=== PATIENT | male | born 1980 | race Caucasian/White ===

== ENCOUNTER 2016-06-10 12:39 | Emergency (ER) | payer SELFPAY ==
[2016-06-10] MEDS ORDERED: Ketorolac Tromethamine 60 MG/2 ML VIAL ONE (13:03)
--- NOTE | 2016-06-10 13:53 | ERRECORD ---
[facility] EMERGENCY RECORD HPI NAUSEA/VOMITING/DIARRHEA (13:19 BLEW) CHIEF COMPLAINT: Patient presents for evaluation of nausea, Patient presents for evaluation of diarrhea, Patient presents for evaluation of Headache. HISTORIAN: History provided by patient, Patient was fine last night but woke this morning with frontal HORVATH, nausea and diarrhea. No fever. (+) body aches and fatigue. No hemoptysis or hematochezia. No head trauma. No neurologic complaints. LOCATION MALE: Symptoms are generalized. QUALITY: Pain is dull in nature. SEVERITY: Maximum severity of symptoms moderate, Currently symptoms are moderate. TIME COURSE: Gradual onset of symptoms, are constant. ASSOCIATED WITH MALE: No associated bright red blood per rectum, Associated with chills, No associated constipation, Associated with diarrhea, No associated genital discharge, No associated groin pain, No associated hematemesis, No associated hematuria, No associated loss of appetite, No associated melena, Associated with nausea, No associated trauma, No associated inability to tolerate oral intake, No associated urinary tract infection signs or symptoms, No associated vomiting. EXACERBATED BY: Patient's condition exacerbated by walking, Patient's condition exacerbated by exertion. RELIEVED BY: Patient's condition relieved by nothing, Patient's condition relieved by nothing because patient has not tried anything for relief. ROS (13:21 BLEW) CONSTITUTIONAL: Negative constitutional review of systems, Historian denies chills, denies fever. EYES: Negative eye review of systems. ENT: Negative ears, nose, throat review of systems. CARDIOVASCULAR: Negative cardiovascular review of systems, Historian denies chest pain, denies palpitations. RESPIRATORY: Negative respiratory review of systems, Historian denies cough, denies shortness of breath. GI: Negative gastrointestinal review of systems, Historian denies abdominal pain, denies constipation, denies diarrhea. MUSCULOSKELETAL: Negative musculoskeletal review of systems. SKIN: Negative skin review of systems. NEUROLOGIC: Negative neurologic review of systems. ENDOCRINE: Negative endocrine review of systems. HEMO/LYMPHATIC: Normal hematologic/lymphatic system review. PSYCHIATRIC: Negative psychiatric review of systems. NOTES: All other ROS is negative except as listed in HPI. PAST MEDICAL HISTORY MEDICAL HISTORY: Flu vaccine not up to date, Tetanus immunization up to date, Past medical history includes &a-1R&a+25V*p+0X*c3465C*c202B*c15G*c2P*p-0X&a-25V&a+1R Name: Ken Mcdonald : 1980 M35 MedRec: [id number] AcctNum: [id number] Prepared: [place] Jun 10, 2016 16:15 by Interface Page 1 of 4 pMD [facility] EMERGENCY RECORD musculoskeletal disorder, chronic back pain. (12:49 BDON) MALE SURGICAL HISTORY: Surgical history of orthopedic surgery, R thumb. (12:49 BDON) PSYCHIATRIC HISTORY: No previous psychiatric history. (12:49 BDON) SOCIAL HISTORY: Patient denies alcohol use, Patient is a former drug user, abused marijuana, Drug history notes: 2 times a day, Patient currently uses tobacco, chews tobacco, daily, Patient has smoked for 25 years,. (12:49 BDON) NOTES: I have reviewed and agree with the PMH/PSxH/FamHx/SocHx obtained by the nurse. (13:21 BLEW) KNOWN ALLERGIES Bactrim DS: - diarrhea No Known Drug Allergies (Unconfirmed) CURRENT MEDICATIONS (12:50 BDON) Robaxin: TABLET : Strength - 750 mg : ORAL Patient Dose: 2 times a day. VITAL SIGNS (12:44 BDON) VITAL SIGNS: BP: 147/94, Pulse: 75, Resp: 18, Temp: 96.8 (Oral), Pain: 6, O2 sat: 99, Time: 06/10/2016 12:44. PHYSICAL EXAM (13:21 BLEW) CONSTITUTIONAL: Vital signs reviewed, Patient appears non toxic, Patient alert and oriented to person, place and time, Pt is in no apparent distress. HEAD: Head exam included findings of head atraumatic, normocephalic. EYES: Eye exam included findings of eyelids normal to inspection, Pupils equally round and reactive to light, Extraocular muscles intact. ENT: ENT exam normal, Nose exam normal, no nasal deformity, no bleeding from nares, Pharynx exam normal, Mouth exam normal, mucous membranes moist. NECK: Neck exam included findings of normal range of motion, Trachea midline. RESPIRATORY CHEST: Respiratory and chest exam normal, Breath sounds clear, No wheezing, No rales, Chest exam included findings of chest movement symmetrical, Chest expansion equal. CARDIOVASCULAR: Cardiovascular assessment normal, Cardiovascular exam included findings of heart rate regular rate and rhythm, Heart sounds normal. ABDOMEN MALE: Abdominal exam included findings of abdomen nontender, Bowel sounds normal, no mass, no pulsatile masses, no peritoneal signs, no rigidity, no guarding, no rebound. BACK: Back exam included findings of normal inspection, range of motion normal, no costovertebral angle tenderness. &a-1R&a+25V*p+0X*t3729Y*c202B*c15G*c2P*p-0X&a-25V&a+1R Name: Ken Mcdonald : 1980 M35 MedRec: [id number] AcctNum: [id number] Prepared: [facility] Jun 10, 2016 16:15 by Interface Page 2 of 4 pMD [facility] EMERGENCY RECORD UPPER EXTREMITY: Upper extremity exam included findings of inspection normal, Range of motion normal. LOWER EXTREMITY: Lower extremity exam included findings of inspection normal, Range of motion normal. NEURO: Neuro exam findings include patient oriented to person, place and time, Speech normal, no focal motor deficits, no focal sensory deficits. SKIN: Skin exam included findings of skin warm, dry, and normal in color. LYMPHATIC: Lymphatic exam normal. PSYCHIATRIC: Psychiatric exam included findings of patient oriented to person place and time, Normal affect. MEDICATION ADMINISTRATION SUMMARY Drug Name: Toradol intramuscular, Dose Ordered: 60 mg, Route: Intramuscular, Status: Given, Time: 13:08 06/10/2016, Detailed record available in Medication Service section. DOCTOR NOTES (13:21 BLEW) TEXT: Patient has normal NIHSS. HORVATH likely due to some dehydration. Patient refused IV or IV meds. Likely a viral syndrome. PROBLEM LIST No recorded problems DIAGNOSIS (13:09 BLEW) FINAL: PRIMARY: viral syndrome. PRESCRIPTION (13:10 BLEW) Imodium A-D: TABLET : 2 mg : ORAL : Quantity: 2 Unit: mg Route: ORAL Schedule: every 6 hours PRN Dispense: 24 May substitute. Refills: 1 . NOTES: No Refills. Compazine tablet: TABLET : 10 mg : ORAL : Quantity: 1 Unit: tab(s) Route: ORAL Schedule: every 8 hours PRN Dispense: 20 May substitute. Refills: No Refills . NOTES: ^s=No Refills No Refills. Motrin: TABLET : 800 mg : ORAL : Quantity: 1 Unit: tab(s) Route: ORAL Schedule: 3 times a day Dispense: 24 May substitute. Refills: No Refills POTENTIAL CONTRAINDICATED INTERACTION: Toradol intramuscular (ketorolac tromethamine) Override Rationale: Benefits outweigh risks. NOTES: ^s=^s=No Refills No Refills No Refills. &a-1R&a+25V*p+0X*d6512J*c202B*c15G*c2P*p-0X&a-25V&a+1R Name: Ken Mcdonald : 1980 5 MedRec: [id number] AcctNum: [id number] Prepared: [place] Jun 10, 2016 16:15 by Interface Page 3 of 4 pMD [facility] EMERGENCY RECORD DISPOSITION PATIENT: Disposition Type: Discharge, Disposition: *Discharge Home. (13:09 BLEW) Patient left the department. (13:48 BDON) Castillo: BDON=KASSI Richardson, Yadi BLEW=DO Montalvo Brandon &a-1R&a+25V*p+0X*j1901M*c202B*c15G*c2P*p-0X&a-25V&a+1R Name: Ken Mcdonald : 1980 M35 MedRec: [id number] AcctNum: [id number] Prepared: [facility] Jun 10, 2016 16:15 by Interface Page 4 of 4 pMD MTDD
--- NOTE | 2016-06-10 14:02 | PICIS ---
[facility] EMERGENCY RECORD TRIAGE (TueJun 10, 2016 12:47 BDON) TRIAGE NOTES: Generalized bodyaches, nausea, diarrhea, weakness and intermittent sweating. Started 6 hours ago Friends have same. (TueJun 10, 2016 12:47 BDON) PATIENT: NAME: Ken Mcdonald, AGE: 35, GENDER: male, : Sat 1980, TIME OF GREET: TueJun 10, 2016 12:39, PREFERRED LANGUAGE: Bangladeshi, ETHNICITY: Not or , ECODE BILLING MAP: [facility], SSN: [id number], Zip Code: [address], KG WEIGHT: 81.65, PHONE: , , , PERSON ID: [id number], PCP: Aarti Holman, /Yris. (TueJun 10, 2016 12:47 BDON) COMPLAINT: BODYACHES,NAUSEA,HEADACHE. (TueJun 10, 2016 12:47 BDON) ADMISSION: URGENCY: 4 Non Urgent, ADMISSION SOURCE: Home, TRANSPORT: Walk-in, BED: TRIAGE. (TueJun 10, 2016 12:47 BDON) ASSESSMENT: Assessment: Bodyaches, diarrhea, nausea and a headache. Friends have the same. Started this morning, Symptoms began 6 hours ago. (12:49 BDON) TREATMENTS IN PROGRESS: Treatments given Prehospital: none. (12:49 BDON) PROVIDERS: TRIAGE NURSE: Yadi Richardson RN. ([place] Jun 10, 2016 12:47 BDON) VITAL SIGNS: BP 147/94, Pulse 75, Resp 18, Temp 96.8, (Oral), Pain 6, O2 Sat 99, Time 06/10/2016 12:44. (12:44 BDON) PREVIOUS VISIT ALLERGIES: No Known Drug Allergies. (TueJun 10, 2016 12:47 BDON) No Known Drug Allergies. (12:49 BDON) KNOWN ALLERGIES Bactrim DS: - diarrhea No Known Drug Allergies (Unconfirmed) CURRENT MEDICATIONS (12:50 BDON) Robaxin: TABLET : Strength - 750 mg : ORAL Patient Dose: 2 times a day. VITAL SIGNS (12:44 BDON) VITAL SIGNS: BP: 147/94, Pulse: 75, Resp: 18, Temp: 96.8 (Oral), Pain: 6, O2 sat: 99, Time: 06/10/2016 12:44. NURSING ASSESSMENT: ABDOMEN (12:58 BDON) CONSTITUTIONAL: Patient arrives ambulatory, Gait steady, History obtained from patient, Patient appears, uncomfortable, Patient cooperative, Patient alert, Oriented to person, place and time, Skin warm, Skin dry, Skin normal in color. PAIN: aching pain, diffusely. ABDOMEN: Abdomen assessment findings include abdomen symmetrical, Abdomen soft, non-tender, Associated with diarrhea. GENITOURINARY MALE: no associated urinary complaints. &a-1R&a+25V*p+0X*k2254Y*c202B*c15G*c2P*p-0X&a-25V&a+1R Name: Ken Mcdonald : 1980 M35 MedRec: [id number] AcctNum: [id number] Prepared: [facility] Jun 10, 2016 16:21 by Interface Page 1 of 5 pMD [facility] EMERGENCY RECORD SAFETY: Cart/Stretcher in lowest position, Family at bedside, Hospital ID band on, Patient in view of the nursing station. NURSING PLAN OF CARE: Acute Medical Condition:, Patient is able to participate in development and implementation of nursing plan of care for acute medical condition. NURSING PROCEDURE: DISCHARGE NOTE (13:30 BDON) DISCHARGE: Patient discharged to home, ambulating without assistance, Summary of Care printed/ provided, Patient requested and was provided an electronic copy of Discharge Instructions, Transition record given to patient, Discharge instructions given to patient, Simple or moderate discharge teaching performed, Patient treated and evaluated by physician. MEDICATION ADMINISTRATION SUMMARY Drug Name: Toradol intramuscular, Dose Ordered: 60 mg, Route: Intramuscular, Status: Given, Time: 13:08 06/10/2016, Detailed record available in Medication Service section. MEDICATION SERVICE (13:08 BLEW) Toradol intramuscular: Order: Toradol intramuscular (ketorolac tromethamine) - Dose: 60 mg : Intramuscular Schedule: Now Ordered by: Agustin Montalvo DO Entered by: Yadi Richardson RN [facility] Jun 10, 2016 13:03 Documented as given by: Yadi Richardson RN [facility] Jun 10, 2016 13:08 Patient, Medication, Dose, Route and Time verified prior to administration. IM medication, Amount given: 60 mg, Medication administered to right thigh, Correct patient, time, route, dose and medication confirmed prior to administration, Patient advised of actions and side-effects prior to administration, Allergies confirmed and medications reviewed prior to administration. HPI NAUSEA/VOMITING/DIARRHEA (13:19 BLEW) CHIEF COMPLAINT: Patient presents for evaluation of nausea, Patient presents for evaluation of diarrhea, Patient presents for evaluation of Headache. HISTORIAN: History provided by patient, Patient was fine last night but woke this morning with frontal HORVATH, nausea and diarrhea. No fever. (+) body aches and fatigue. No hemoptysis or hematochezia. No head trauma. No neurologic complaints. LOCATION MALE: Symptoms are generalized. QUALITY: Pain is dull in nature. SEVERITY: Maximum severity of symptoms moderate, Currently symptoms are moderate. TIME COURSE: Gradual onset of symptoms, are constant. ASSOCIATED WITH MALE: No associated bright red blood per rectum, Associated with chills, No associated constipation, Associated with &a-1R&a+25V*p+0X*i9098C*c202B*c15G*c2P*p-0X&a-25V&a+1R Name: Ken Mcdonald : 1980 M35 MedRec: [id number] AcctNum: [id number] Prepared: [place] Jun 10, 2016 16:21 by Interface Page 2 of 5 pMD [facility] EMERGENCY RECORD diarrhea, No associated genital discharge, No associated groin pain, No associated hematemesis, No associated hematuria, No associated loss of appetite, No associated melena, Associated with nausea, No associated trauma, No associated inability to tolerate oral intake, No associated urinary tract infection signs or symptoms, No associated vomiting. EXACERBATED BY: Patient's condition exacerbated by walking, Patient's condition exacerbated by exertion. RELIEVED BY: Patient's condition relieved by nothing, Patient's condition relieved by nothing because patient has not tried anything for relief. ROS (13:21 BLEW) CONSTITUTIONAL: Negative constitutional review of systems, Historian denies chills, denies fever. EYES: Negative eye review of systems. ENT: Negative ears, nose, throat review of systems. CARDIOVASCULAR: Negative cardiovascular review of systems, Historian denies chest pain, denies palpitations. RESPIRATORY: Negative respiratory review of systems, Historian denies cough, denies shortness of breath. GI: Negative gastrointestinal review of systems, Historian denies abdominal pain, denies constipation, denies diarrhea. MUSCULOSKELETAL: Negative musculoskeletal review of systems. SKIN: Negative skin review of systems. NEUROLOGIC: Negative neurologic review of systems. ENDOCRINE: Negative endocrine review of systems. HEMO/LYMPHATIC: Normal hematologic/lymphatic system review. PSYCHIATRIC: Negative psychiatric review of systems. NOTES: All other ROS is negative except as listed in HPI. PAST MEDICAL HISTORY MEDICAL HISTORY: Flu vaccine not up to date, Tetanus immunization up to date, Past medical history includes musculoskeletal disorder, chronic back pain. (12:49 BDON) MALE SURGICAL HISTORY: Surgical history of orthopedic surgery, R thumb. (12:49 BDON) PSYCHIATRIC HISTORY: No previous psychiatric history. (12:49 BDON) SOCIAL HISTORY: Patient denies alcohol use, Patient is a former drug user, abused marijuana, Drug history notes: 2 times a day, Patient currently uses tobacco, chews tobacco, daily, Patient has smoked for 25 years,. (12:49 BDON) NOTES: I have reviewed and agree with the PMH/PSxH/FamHx/SocHx obtained by the nurse. (13:21 BLEW) PHYSICAL EXAM (13:21 BLEW) CONSTITUTIONAL: Vital signs reviewed, Patient appears non toxic, Patient alert and oriented to person, place and time, Pt is in &a-1R&a+25V*p+0X*a9251X*c202B*c15G*c2P*p-0X&a-25V&a+1R Name: Ken Mcdonald Ritu : 1980 M35 MedRec: [id number] AcctNum: [id number] Prepared: [facility] Jun 10, 2016 16:21 by Interface Page 3 of 5 pMD [facility] EMERGENCY RECORD no apparent distress. HEAD: Head exam included findings of head atraumatic, normocephalic. EYES: Eye exam included findings of eyelids normal to inspection, Pupils equally round and reactive to light, Extraocular muscles intact. ENT: ENT exam normal, Nose exam normal, no nasal deformity, no bleeding from nares, Pharynx exam normal, Mouth exam normal, mucous membranes moist. NECK: Neck exam included findings of normal range of motion, Trachea midline. RESPIRATORY CHEST: Respiratory and chest exam normal, Breath sounds clear, No wheezing, No rales, Chest exam included findings of chest movement symmetrical, Chest expansion equal. CARDIOVASCULAR: Cardiovascular assessment normal, Cardiovascular exam included findings of heart rate regular rate and rhythm, Heart sounds normal. ABDOMEN MALE: Abdominal exam included findings of abdomen nontender, Bowel sounds normal, no mass, no pulsatile masses, no peritoneal signs, no rigidity, no guarding, no rebound. BACK: Back exam included findings of normal inspection, range of motion normal, no costovertebral angle tenderness. UPPER EXTREMITY: Upper extremity exam included findings of inspection normal, Range of motion normal. LOWER EXTREMITY: Lower extremity exam included findings of inspection normal, Range of motion normal. NEURO: Neuro exam findings include patient oriented to person, place and time, Speech normal, no focal motor deficits, no focal sensory deficits. SKIN: Skin exam included findings of skin warm, dry, and normal in color. LYMPHATIC: Lymphatic exam normal. PSYCHIATRIC: Psychiatric exam included findings of patient oriented to person place and time, Normal affect. EVENTS TRANSFER: Triage to Emergency Triage. (TueJun 10, 2016 12:47 BDON) Emergency Triage to Emergency Room -03. (12:47 BDON) Emergency Emergency Room -03 to Waiting. (13:39 BDON) Removed from Emergency Waiting. (13:48 BDON) DOCTOR NOTES (13:21 BLEW) TEXT: Patient has normal NIHSS. HORVATH likely due to some dehydration. Patient refused IV or IV meds. Likely a viral syndrome. PROBLEM LIST No recorded problems &a-1R&a+25V*p+0X*k7279L*c202B*c15G*c2P*p-0X&a-25V&a+1R Name: Ken Mcdonald Ritu : 1980 M35 MedRec: [id number] AcctNum: [id number] Prepared: [facility] Jun 10, 2016 16:21 by Interface Page 4 of 5 pMD [facility] EMERGENCY RECORD DIAGNOSIS (13:09 BLEW) FINAL: PRIMARY: viral syndrome. DISPOSITION PATIENT: Disposition Type: Discharge, Disposition: *Discharge Home. (13:09 BLEW) Patient left the department. (13:48 BDON) INSTRUCTION (13:11 BLEW) DISCHARGE: VIRAL SYNDROME (ADULT). FOLLOWUP: [facility], [facility], [address] [facility] [place], [facility] [address], , Follow up with Primary Care Physician in 3-4 days. SPECIAL: You should drink plenty of clear fluids over the next few days. If you are nauseated or having diarrhea, you should not eat any solid food (liquids only) until those symptoms resolve. Call your doctor or return with worsening or worrisome symptoms. PRESCRIPTION (13:10 BLEW) Imodium A-D: TABLET : 2 mg : ORAL : Quantity: 2 Unit: mg Route: ORAL Schedule: every 6 hours PRN Dispense: 24 May substitute. Refills: 1 . NOTES: No Refills. Compazine tablet: TABLET : 10 mg : ORAL : Quantity: 1 Unit: tab(s) Route: ORAL Schedule: every 8 hours PRN Dispense: 20 May substitute. Refills: No Refills . NOTES: ^s=No Refills No Refills. Motrin: TABLET : 800 mg : ORAL : Quantity: 1 Unit: tab(s) Route: ORAL Schedule: 3 times a day Dispense: 24 May substitute. Refills: No Refills POTENTIAL CONTRAINDICATED INTERACTION: Toradol intramuscular (ketorolac tromethamine) Override Rationale: Benefits outweigh risks. NOTES: ^s=^s=No Refills No Refills No Refills. IMAGING *DISCHARGE INSTRUCTIONS RECEIPT: Image captured from scanner. (13:47 BDON) *SUPPLY CHARGE SHEET: Image captured from scanner. (13:48 BDON) ADMIN DIGITAL SIGNATURE: KASSI Richardson Bettye. (13:48 BDON) DO Montalvo Brandon. (16:12 BLEW) Castillo: BDON=KASSI Richardson Bettye BLEW=DO Montalvo Brandon &a-1R&a+25V*p+0X*l9458K*c202B*c15G*c2P*p-0X&a-25V&a+1R Name: Ken Mcdonald : 1980 [facility] [place] MedRec: [id number] AcctNum: [id number] Prepared: [place] Jun 10, 2016 16:21 by Interface Page 5 of 5 pMD MTDD
== END 2016-06-10 13:30 | disposition home or self-care (01) ==
LOC: NAV ERS 12:39
DX: B34.9 Viral infection, unspecified (principal)
CPT/HCPCS: 96372; J1885

== ENCOUNTER 2016-09-28 08:46 | Emergency (ER) | payer SELFPAY ==
[2016-09-28] MEDS ORDERED: Lidocaine 1% 20 ML MDV ONE (09:04)
== END 2016-09-28 09:30 | disposition home or self-care (01) ==
LOC: NAV ERS 08:46
DX: L02.421 Furuncle of right axilla (principal); F31.9 Bipolar disorder, unspecified; F41.0 Panic disorder [episodic paroxysmal anxiety]; F17.220 Nicotine dependence, chewing tobacco, uncomplicated; Z79.899 Other long term (current) drug therapy
CPT/HCPCS: 10060; 87070; 87077; 87186; 87205; J2001

== ENCOUNTER 2016-11-04 12:09 | Emergency (ER) | payer SELFPAY ==
[2016-11-04] MEDS ORDERED: Metoclopramide HCl 10 MG/2 ML VIAL ONE (12:54)
[2016-11-04] MEDS ORDERED: diphenhydrAMINE HCl 50 MG/ML 1 ML VIAL ONE (12:54)
== END 2016-11-04 13:57 | disposition home or self-care (01) ==
LOC: NAV ERS 12:09
DX: G43.909 Migraine, unspecified, not intractable, without status migrainosus (principal); F31.9 Bipolar disorder, unspecified; F41.9 Anxiety disorder, unspecified; F17.220 Nicotine dependence, chewing tobacco, uncomplicated; Z79.899 Other long term (current) drug therapy
CPT/HCPCS: 96372; J1200; J2765

== ENCOUNTER 2016-11-24 01:04 | Emergency (ER) | payer SELFPAY ==
[2016-11-24] MEDS ORDERED: Cephalexin 250 MG CAP ONE (01:16)
== END 2016-11-24 01:26 | disposition home or self-care (01) ==
LOC: NAV ERS 01:04
DX: L02.414 Cutaneous abscess of left upper limb (principal); I10 Essential (primary) hypertension; F31.9 Bipolar disorder, unspecified; F41.0 Panic disorder [episodic paroxysmal anxiety]; F17.220 Nicotine dependence, chewing tobacco, uncomplicated; Z79.899 Other long term (current) drug therapy
CPT/HCPCS: 99283

== ENCOUNTER 2016-12-08 14:23 | Outpatient (CLI) | payer OTHER ==
--- NOTE | 2016-12-09 07:37 | RAD ---
RIGHT FINGER TWO VIEWS: History: Injury to the right finger, fourth digit. Pain. FINDINGS/IMPRESSION: There is a questionable fracture involving the base of the dorsal aspect of the distal phalanx. POS: [facility]
== END 2016-12-08 14:24 | disposition home or self-care (01) ==
LOC: NAV RAD 14:23
PROVIDERS: ATTEND Nurse Practitioner Family
DX: S69.91XD Unspecified injury of right wrist, hand and finger(s), subsequent encounter (principal)

== ENCOUNTER 2016-12-21 18:13 | Outpatient (CLI) | payer OTHER ==
--- NOTE | 2016-12-21 20:24 | RAD ---
THREE VIEWS RIGHT HAND 12/21/16 COMPARISON: None. HISTORY: Re-evaluate fracture of the fourth finger. FINDINGS: A fracture deformity was noted involving the dorsal base of the fourth distal phalanx on radiographs of the finger performed 12/08/16. This examination reidentifies that fracture. There has been no evidence for healing. The fracture de monstrates retraction since the prior examination, at least 4 mm. This suggests tension secondary to insertion of the extensor digitorum tendon. No new fracture is identified. IMPRESSION: Obliquely oriented intra-articular fracture again noted involving the dorsal base of the fourth dist al phalanx. There has been interval retraction of the fracture fragment. Nonemergent followup orthop edic consultation advised. POS: TAB[facility]
== END 2016-12-21 18:14 | disposition home or self-care (01) ==
LOC: NAV RAD 18:13
PROVIDERS: ATTEND Nurse Practitioner Family
DX: S69.91XD Unspecified injury of right wrist, hand and finger(s), subsequent encounter (principal)

== ENCOUNTER 2016-12-27 16:37 | Emergency (ER) | payer OTHER ==
[2016-12-27] MEDS ORDERED: Lidocaine 1% 20 ML MDV ONE (17:21)
--- NOTE | 2016-12-27 17:32 | RAD ---
RIGHT HAND THREE VIEWS: History: Laceration of fifth metacarpal. Hit on a broken taillight. Comparison: 12-21-16 FINDINGS: There is no acute fracture or malalignment. No radiopaque foreign object is appreciated. There is mild joint space narrowing of the distal interphalangeal joint, second-fifth digits. Mild d egenerative disease at the thumb carpal metacarpal joint. There is a fracture of the base of the dorsal aspect distal phalanx fourth digit. This was visualize d on the prior examination. IMPRESSION: 1. Similar appearance of the intra-articular fracture distal phalanx base fourth digit. 2. No new fracture or malalignment. POS: [facility]
[2016-12-27] MEDS ORDERED: Bacitracin Zinc 1 Packet ONE (17:35)
== END 2016-12-27 17:46 | disposition home or self-care (01) ==
LOC: NAV ERS 16:37
DX: S62.634A Displaced fracture of distal phalanx of right ring finger, initial encounter for closed fracture (principal); S61.411A Laceration without foreign body of right hand, initial encounter; F41.0 Panic disorder [episodic paroxysmal anxiety]; F31.9 Bipolar disorder, unspecified; F17.220 Nicotine dependence, chewing tobacco, uncomplicated; W22.8XXA Striking against or struck by other objects, initial encounter; Y92.009 Unspecified place in unspecified non-institutional (private) residence as the place of occurrence of the external cause
CPT/HCPCS: 12001; J2001

== ENCOUNTER 2017-03-28 07:17 | Emergency (ER) | payer OTHER ==
[2017-03-28] MEDS ORDERED: Lidocaine 1% 20 ML MDV ONE (07:34)
== END 2017-03-28 07:55 | disposition home or self-care (01) ==
LOC: NAV ERS 07:17
DX: L02.412 Cutaneous abscess of left axilla (principal); R03.0 Elevated blood-pressure reading, without diagnosis of hypertension; F31.9 Bipolar disorder, unspecified; F17.220 Nicotine dependence, chewing tobacco, uncomplicated; F41.9 Anxiety disorder, unspecified
CPT/HCPCS: 10060; J2001

== ENCOUNTER 2017-04-15 07:41 | Emergency (ER) | payer OTHER, SELFPAY ==
[2017-04-15] MEDS ORDERED: Lidocaine 1% 20 ML MDV ONE (08:13)
[2017-04-15] MEDS ORDERED: Acetaminophen/Codeine 30-300mg Tablet ONE (08:50)
[2017-04-15] MEDS ORDERED: Clindamycin 150 MG CAP ONE (08:51)
[2017-04-15] MEDS ORDERED: Ondansetron ODT 4 MG TAB ONE (08:51)
== END 2017-04-15 08:58 | disposition home or self-care (01) ==
LOC: NAV ERS 07:41
DX: L60.0 Ingrowing nail (principal); J06.9 Acute upper respiratory infection, unspecified; F31.9 Bipolar disorder, unspecified; F41.0 Panic disorder [episodic paroxysmal anxiety]; F17.220 Nicotine dependence, chewing tobacco, uncomplicated
CPT/HCPCS: 11750; J2001; Q0162

== ENCOUNTER 2017-08-02 19:18 | Emergency (ER) | payer SELFPAY ==
[2017-08-02] MEDS ORDERED: Clindamycin 150 MG CAP ONE (20:07)
[2017-08-02] MEDS ORDERED: Acetaminophen/Codeine 30-300mg Tablet ONE (20:07)
== END 2017-08-02 20:17 | disposition home or self-care (01) ==
LOC: NAV ERS 19:18
DX: L02.12 Furuncle of neck (principal); G89.29 Other chronic pain; F41.9 Anxiety disorder, unspecified; F31.9 Bipolar disorder, unspecified; F17.220 Nicotine dependence, chewing tobacco, uncomplicated
CPT/HCPCS: 10060; 87070; 87077; 87186; 87205

== ENCOUNTER 2017-09-11 20:49 | Emergency (ER) | payer SELFPAY ==
[2017-09-11] MEDS ORDERED: Fluorescein Opthalmic Strip ONE (21:00)
== END 2017-09-11 21:33 | disposition home or self-care (01) ==
LOC: NAV ERS 20:49
DX: T15.11XA Foreign body in conjunctival sac, right eye, initial encounter (principal); I10 Essential (primary) hypertension; F31.9 Bipolar disorder, unspecified; F41.9 Anxiety disorder, unspecified; F17.220 Nicotine dependence, chewing tobacco, uncomplicated
CPT/HCPCS: 99283

== ENCOUNTER 2017-09-27 09:48 | Emergency (ER) | payer SELFPAY | END 2017-09-27 10:26 | disposition home or self-care (01) | LOC: NAV ERS 09:48 | DX: M25.511 Pain in right shoulder (principal); I10 Essential (primary) hypertension; F31.9 Bipolar disorder, unspecified; F17.220 Nicotine dependence, chewing tobacco, uncomplicated; F41.0 Panic disorder [episodic paroxysmal anxiety] | CPT/HCPCS: 99283 ==

== ENCOUNTER 2017-10-18 07:56 | Emergency (ER) | payer SELFPAY ==
[2017-10-18] MEDS ORDERED: Ondansetron ODT 4 MG TAB ONE (08:16)
[2017-10-18] MEDS ORDERED: Sodium Chloride 0.9% 1,000 ML ONE (08:20)
[2017-10-18] MEDS ORDERED: Ondansetron HCl/PF 4 MG/2 ML Vial ONE (08:36)
[2017-10-18 08:56] LABS: Hemoglobin 18.3 g/dL (14.0-18.0); Mean Corpuscular HGB CONC 31.8 g/dL (32.0-36.0); Mean Corpuscular Hemoglobin 27.8 pg (27.0-31.0); Mean Corpuscular Volume 87.6 fl (80.0-94.0); Mean Platelet Volume 7.9 fL (7.4-10.4); Platelet Count 345 thou/uL (130-400); RBC Distribution Width 11.5 % (11.5-14.5); Red Blood Cell (RBC) Count 6.58 mill/uL (4.70-6.10); White Blood Cell (WBC) Count 20.6 thou/uL (4.8-10.8)
[2017-10-18 09:01] LABS: ALT (SGPT) 48 U/L (8-55); AST (SGOT) 28 U/L (5-34); Albumin 5.1 g/dL (3.5-5.0); Alkaline Phosphatase 107 U/L (40-150); Anion Gap 15 mmol/L (10-20); BUN (Urea Nitrogen) 18 mg/dL (8.9-20.6); Bilirubin, Total 0.8 mg/dL (0.2-1.2); Calc. Creatinine Clearance 0 mL/min (70-130); Calcium 10.1 mg/dL (7.8-10.44); Carbon Dioxide 26 mmol/L (22-29); Chloride 103 mmol/L (98-107); Estimated GFR-MDRD 66; Globulin 3.2 g/dL (2.4-3.5); Glucose 146 mg/dL (70-105); Lipase 15 U/L (8-78); Potassium 4.5 mmol/L (3.5-5.1); Protein, Total 8.3 g/dL (6.0-8.3); Sodium 139 mmol/L (136-145)
[2017-10-18 09:12] LABS: Band 5 % (5-11); Eosinophils 3 % (0-10); Lymphocytes 2 % (21-51); MDiff Complete? YES; Monocytes 4 % (0-10); Neutrophil 78 % (42-75); PLT Morphology Comment Appears Adequate; RBC Morphology Normal; Reactive Lymphocytes 8 % (0-10)
[2017-10-18] MEDS ORDERED: Ciprofloxacin Lactate/D5W 400 mg/200 ml Premix ONE (09:22)
[2017-10-18 09:39] LABS: Bilirubin Small (Negative); Blood, Urine Negative (Negative); Clarity Clear (Clear); Glucose, Urine (Dipstick) Negative (Negative); Leukocyte Negative (Negative); Nitrite Negative (Negative); Protein, Urine (Dipstick) 100 mg/dL (Neg-Trace); Urobilinogen 0.2 mg/dL (0.2-1.0); pH, Urine 5.5 (5.0-9.0)
[2017-10-18 09:46] LABS: Specific Gravity, Urine 1.031 (1.002-1.036)
[2017-10-18 09:47] LABS: Bacteria/HPF None Seen HPF (None Seen); RBC/HPF 0-3 HPF (0-3); Squamous Epithelial 0-3 HPF (0-3); WBC/HPF 0-3 HPF (0-3)
[2017-10-18 09:48] LABS: Hyaline Casts/LPF 7-10 HYALINE CAST LPF (0-3 Hyaline); Other Microscopic Description 4+ MUCUS
[2017-10-18 09:50] LABS: Amphetamine Not Detected (NotDetected); Barbiturates Screen Not Detected (NotDetected); Benzodiazepine Screen Not Detected (NotDetected); Cocaine Metabolite Screen Not Detected (NotDetected); Medtox Control Line Valid? VALID (VALID); Methadone Not Detected (NotDetected); Methamphetamine Not Detected (NotDetected); Opiate Screen Not Detected (NotDetected); Oxycodone Screen Not Detected (NotDetected); Phencyclidine (PCP) Not Detected (NotDetected); THC/Cannabinoid Screen Detected (NotDetected); Tricyclic Screen Not Detected (NotDetected)
== END 2017-10-18 10:37 | disposition home or self-care (01) ==
LOC: NAV ERS 07:56
DX: K52.9 Noninfective gastroenteritis and colitis, unspecified (principal); I10 Essential (primary) hypertension; F31.9 Bipolar disorder, unspecified; F41.9 Anxiety disorder, unspecified; F17.220 Nicotine dependence, chewing tobacco, uncomplicated
CPT/HCPCS: 36415; 80053; 80306; 81003; 81015; 82150; 83690; 85025; 96361; 96365; 96375; J0744; J2405; J7050; Q0162

== ENCOUNTER 2017-11-11 16:04 | Emergency (ER) | payer SELFPAY | END 2017-11-11 16:30 | disposition home or self-care (01) | LOC: NAV ERS 16:04 | DX: L04.0 Acute lymphadenitis of face, head and neck (principal); I10 Essential (primary) hypertension; M54.9 Dorsalgia, unspecified; G89.29 Other chronic pain; F31.9 Bipolar disorder, unspecified; F41.0 Panic disorder [episodic paroxysmal anxiety]; F17.220 Nicotine dependence, chewing tobacco, uncomplicated | CPT/HCPCS: 99283 ==

== ENCOUNTER 2017-12-26 14:06 | Emergency (ER) | payer SELFPAY ==
[2017-12-26] MEDS ORDERED: Ondansetron ODT 4 MG TAB ONE (14:17)
== END 2017-12-26 15:00 | disposition home or self-care (01) ==
LOC: NAV ERS 14:06
DX: R11.2 Nausea with vomiting, unspecified (principal); I10 Essential (primary) hypertension; F31.9 Bipolar disorder, unspecified; F41.9 Anxiety disorder, unspecified; F17.220 Nicotine dependence, chewing tobacco, uncomplicated
CPT/HCPCS: 99283; Q0162

== ENCOUNTER 2018-04-07 14:17 | Emergency (ER) | payer SELFPAY | END 2018-04-07 14:55 | disposition home or self-care (01) | LOC: NAV ERS 14:17 | DX: R10.30 Lower abdominal pain, unspecified (principal); I10 Essential (primary) hypertension; F31.9 Bipolar disorder, unspecified; F41.0 Panic disorder [episodic paroxysmal anxiety]; F43.10 Post-traumatic stress disorder, unspecified; F17.220 Nicotine dependence, chewing tobacco, uncomplicated; M19.90 Unspecified osteoarthritis, unspecified site | CPT/HCPCS: 99283 ==

== ENCOUNTER 2018-05-03 07:06 | Emergency (ER) | payer SELFPAY | END 2018-05-03 07:37 | disposition home or self-care (01) | LOC: NAV ERS 07:06 | DX: J01.90 Acute sinusitis, unspecified (principal); F43.10 Post-traumatic stress disorder, unspecified; F41.0 Panic disorder [episodic paroxysmal anxiety]; F17.220 Nicotine dependence, chewing tobacco, uncomplicated; I10 Essential (primary) hypertension; M19.90 Unspecified osteoarthritis, unspecified site | CPT/HCPCS: 99283 ==

== ENCOUNTER 2018-05-23 00:42 | Emergency (ER) | payer SELFPAY ==
[2018-05-23] MEDS ORDERED: Fluorescein Opthalmic Strip ONE (00:50)
[2018-05-23] MEDS ORDERED: Proparacaine 0.5% Opth 15 ML BOT ONE (00:50)
[2018-05-23] MEDS ORDERED: Gentamicin Ophth Soln 0.3% 5 ml Bottle ONE (01:11)
[2018-05-23] MEDS ORDERED: Acetaminophen 500 MG TAB ONE (01:11)
[2018-05-23] MEDS ORDERED: Ibuprofen 800 MG TAB ONE (01:11)
[2018-05-23] MEDS ORDERED: Cyclopentolate 1% Opth Drop 2 ML BOT ONE (01:12)
== END 2018-05-23 01:20 | disposition home or self-care (01) ==
LOC: NAV ERS 00:42
DX: S05.02XA Injury of conjunctiva and corneal abrasion without foreign body, left eye, initial encounter (principal); I10 Essential (primary) hypertension; F43.10 Post-traumatic stress disorder, unspecified; F31.9 Bipolar disorder, unspecified; F41.0 Panic disorder [episodic paroxysmal anxiety]; F17.220 Nicotine dependence, chewing tobacco, uncomplicated; X58.XXXA Exposure to other specified factors, initial encounter
CPT/HCPCS: 99283

== ENCOUNTER 2018-09-24 12:48 | Emergency (ER) | payer SELFPAY | END 2018-09-24 13:24 | disposition home or self-care (01) | LOC: NAV ERS 12:48 | DX: R42 Dizziness and giddiness (principal); T46.4X5A Adverse effect of angiotensin-converting-enzyme inhibitors, initial encounter; I10 Essential (primary) hypertension; J45.909 Unspecified asthma, uncomplicated; M19.90 Unspecified osteoarthritis, unspecified site; F31.9 Bipolar disorder, unspecified; F43.10 Post-traumatic stress disorder, unspecified; F41.0 Panic disorder [episodic paroxysmal anxiety]; Z87.891 Personal history of nicotine dependence; Z79.899 Other long term (current) drug therapy | CPT/HCPCS: 99284 ==